=== PATIENT | female | born 1940 | race Caucasian/White ===

== ENCOUNTER 2019-09-18 10:02 | Emergency (ER) | payer MEDICAID, MEDICARE, SELFPAY ==
[2019-09-18] MEDS ORDERED: methylPREDNISolone Sod Succ/PF 125 MG/2 ML VIAL ONE (10:36)
[2019-09-18] MEDS ORDERED: Ketorolac Tromethamine 30 MG/ML VIAL ONE (10:42)
[2019-09-18 10:53] LABS: #Basophils 0.2 thou/uL (0.0-0.2); #Eosinphils 0.3 thou/uL (0.0-0.7); #Lymphocytes 1.9 thou/uL (1.20-3.40); #Neutrophils 9.8 thou/uL (1.40-6.50); %Basophils 1.4 % (0.0-1.0); %Eosinophils 2.2 % (0.0-10.0); %Lymphocytes 14.3 % (21.0-51.0); %Monocytes 7.7 % (0.0-10.0); %Neutrophils 74.3 % (42.0-75.0); Hemoglobin 13.6 g/dL (12.0-16.0); Mean Corpuscular HGB CONC 30.6 g/dL (32.0-36.0); Mean Corpuscular Hemoglobin 29.3 pg (27.0-31.0); Mean Corpuscular Volume 95.8 fL (78.0-98.0); Mean Platelet Volume 9.8 fL (7.4-10.4); Platelet Count 352 thou/uL (130-400); RBC Distribution Width 14.2 % (11.5-14.5); Red Blood Cell (RBC) Count 4.65 mill/uL (4.20-5.40); White Blood Cell (WBC) Count 13.1 thou/uL (4.8-10.8)
[2019-09-18 11:08] LABS: ALT (SGPT) 17 U/L (8-55); AST (SGOT) 13 U/L (5-34); Albumin 4.3 g/dL (3.4-4.8); Alkaline Phosphatase 127 U/L (40-110); Anion Gap 15 mmol/L (10-20); BUN (Urea Nitrogen) 20 mg/dL (9.8-20.1); Bilirubin, Total 0.2 mg/dL (0.2-1.2); CK (CPK) 63 U/L (29-168); Calc. Creatinine Clearance 0 mL/min (70-130); Calcium 9.7 mg/dL (7.8-10.44); Carbon Dioxide 27 mmol/L (23-31); Chloride 101 mmol/L (98-107); Estimated GFR-MDRD 76; Globulin 3.4 g/dL (2.4-3.5); Glucose 132 mg/dL (83-110); Magnesium 2.1 mg/dL (1.6-2.6); Potassium 4.2 mmol/L (3.5-5.1); Protein, Total 7.7 g/dL (6.0-8.3); Sodium 139 mmol/L (136-145)
[2019-09-18] MEDS ORDERED: Lorazepam 2 MG/ML VIAL ONE (12:20)
[2019-09-18] MEDS ORDERED: Magnesium 2 GM/50 ML BAG (IN WATER) ONE (12:22)
--- NOTE | 2019-09-18 17:41 | RAD ---
PORTABLE CHEST: Date: 09-18-2019 An AP portable film at 1118 is compared with a 09-19-17 study. FINDINGS: The heart is borderline in size but changed. There is no vascular congestion, edema, or pleural effus ion. The lungs are hyperexpanded as before. I do not see any signs of pneumonia. There may be a mike h 5 mm nodular density in the right apex, but this area is partially covered by bone, so I cannot be sure. I could not find any evidence of it on the last 2-3 chest films. IMPRESSION: 1. Hyperexpansion of the lungs as usual, but no definite acute findings. 2. Equivocal 5 mm smooth nodule in the right upper lobe. As this is where several bones overlap, this could just as easily be due to overlap. It would probably be best to get a follow up chest radiograp h, preferable a PA in 2-3 months. Code T POS: HOME
== END 2019-09-18 13:52 | disposition short-term general hospital (02) ==
LOC: BURERS 10:02
DX: J44.1 Chronic obstructive pulmonary disease with (acute) exacerbation (principal); E78.5 Hyperlipidemia, unspecified; I10 Essential (primary) hypertension; M06.9 Rheumatoid arthritis, unspecified; Z87.891 Personal history of nicotine dependence; Z79.899 Other long term (current) drug therapy; Z79.51 Long term (current) use of inhaled steroids
CPT/HCPCS: 71045; 80053; 82550; 83735; 84484; 85025; 93005; 94640; 94644; 94660; 94760; 96365; 96375; J1885; J2060; J2930; J3475; J7620

== ENCOUNTER 2019-10-22 13:59 | Emergency (ER) | payer MEDICARE, OTHER ==
[2019-10-22] MEDS ORDERED: Magnesium 2 GM/50 ML BAG (IN WATER) ONE (14:13)
[2019-10-22] MEDS ORDERED: methylPREDNISolone Sod Succ/PF 125 MG/2 ML VIAL ONE (14:13)
[2019-10-22] MEDS ORDERED: Albuterol Sulfate 2.5 mg/0.5 ml Neb ONE ×2 (14:21→14:23)
[2019-10-22 14:34] LABS: ALT (SGPT) 14 U/L (8-55); AST (SGOT) 18 U/L (5-34); Albumin 4.4 g/dL (3.4-4.8); Alkaline Phosphatase 109 U/L (40-110); Anion Gap 15 mmol/L (10-20); BUN (Urea Nitrogen) 20 mg/dL (9.8-20.1); Bilirubin, Total 0.4 mg/dL (0.2-1.2); CK (CPK) 94 U/L (29-168); Calc. Creatinine Clearance 0 mL/min (70-130); Carbon Dioxide 24 mmol/L (23-31); Chloride 103 mmol/L (98-107); Estimated GFR-MDRD 71; Glucose 104 mg/dL (83-110); Potassium 4.3 mmol/L (3.5-5.1); Protein, Total 7.4 g/dL (6.0-8.3); Sodium 138 mmol/L (136-145)
--- NOTE | 2019-10-22 14:36 | RAD ---
RADIOGRAPH CHEST 1 VIEW: DATE: 10/22/2019 HISTORY: 79-year-old female with dyspnea FINDINGS: There is hyperinflation of the lungs, consistent with COPD. There is no evidence of airspace density, pulmonary edema, or pneumothorax. The lateral costophrenic angles are not effaced. IMPRESSION: 1) No acute pulmonary findings. 2) emphysema.
[2019-10-22 14:39] LABS: Eosinophils 1 % (0-10); Hemoglobin 13.3 g/dL (12.0-16.0); Lymphocytes 10 % (21-51); MDiff Complete? YES; Mean Corpuscular HGB CONC 31.3 g/dL (32.0-36.0); Mean Corpuscular Hemoglobin 30.1 pg (27.0-31.0); Mean Corpuscular Volume 96.1 fL (78.0-98.0); Mean Platelet Volume 8.6 fL (7.4-10.4); Monocytes 12 % (0-10); Neutrophil 77 % (42-75); Platelet Count 350 thou/uL (130-400); RBC Distribution Width 14.6 % (11.5-14.5); Red Blood Cell (RBC) Count 4.41 mill/uL (4.20-5.40); White Blood Cell (WBC) Count 14.1 thou/uL (4.8-10.8)
== END 2019-10-22 16:10 | disposition short-term general hospital (02) ==
LOC: BURERS 13:59
DX: J44.1 Chronic obstructive pulmonary disease with (acute) exacerbation (principal); E78.5 Hyperlipidemia, unspecified; I10 Essential (primary) hypertension; M06.9 Rheumatoid arthritis, unspecified; Z87.891 Personal history of nicotine dependence
CPT/HCPCS: 71045; 80053; 82550; 84484; 85025; 93005; 94640; 96365; 96375; J2930; J3475; J7611; J7620

== ENCOUNTER 2020-04-07 12:25 | Emergency (ER) | payer MEDICARE, MEDICAID, OTHER ==
[~2020-04-07 12:25] MED LIST: Iopamidol 370 76% 100 ML VIAL ONE
[2020-04-07] MEDS ORDERED: methylPREDNISolone Sod Succ/PF 125 MG/2 ML VIAL ONE (12:50)
[2020-04-07] MEDS ORDERED: Magnesium 2 GM/50 ML BAG (IN WATER) ONE (12:50)
[2020-04-07] MEDS ORDERED: Ketorolac Tromethamine 30 MG/ML VIAL ONE (12:50)
[2020-04-07 13:24] LABS: ALT (SGPT) 12 U/L (8-55); AST (SGOT) 11 U/L (5-34); Alkaline Phosphatase 77 U/L (40-110); Anion Gap 16 mmol/L (10-20); BUN (Urea Nitrogen) 20 mg/dL (9.8-20.1); Bilirubin, Total 0.8 mg/dL (0.2-1.2); Calc. Creatinine Clearance 0 mL/min (70-130); Calcium 9.4 mg/dL (7.8-10.44); Carbon Dioxide 26 mmol/L (23-31); Chloride 98 mmol/L (98-107); Estimated GFR-MDRD 52; Globulin 2.9 g/dL (2.4-3.5); Glucose 146 mg/dL (83-110); Potassium 3.6 mmol/L (3.5-5.1); Protein, Total 6.9 g/dL (6.0-8.3); Sodium 136 mmol/L (136-145)
[2020-04-07 13:29] LABS: Band 5 % (5-11); Base Excess-Venous 3.5 mmol/L (-2.0 to 3.0); Bicarbonate (HCO3v) 27.6 mmol/L (22.0-28.0); CO2 Tension (PvCO2) 39.4 mmHg (40.0-50.0); Calcium, Ionized 1.14 mmol/L (See Comments:); Chloride 99 mmol/L (98-107); Hemoglobin - Calc 13.5 g/dL (12.0-16.0); Lymphocytes 5 % (21-51); MDiff Complete? YES; Mean Corpuscular Hemoglobin 30.8 pg (27.0-31.0); Mean Corpuscular Volume 99.4 fL (78.0-98.0); Mean Platelet Volume 10.3 fL (7.4-10.4); Monocytes 5 % (0-10); Neutrophil 85 % (42-75); Platelet Count 271 thou/uL (130-400); Potassium 3.6 mmol/L (3.5-5.1); RBC Distribution Width 12.8 % (11.5-14.5); Red Blood Cell (RBC) Count 3.89 mill/uL (4.20-5.40); Sodium 137 mmol/L (138-145); T. Carbon Dioxide 28.8 mmol/L (22.0-28.0); White Blood Cell (WBC) Count 27.3 thou/uL (4.8-10.8); vO2 Saturation-calc 99.7 % (60.0-85.0)
[2020-04-07] MEDS ORDERED: Azithromycin 500 MG VIAL ONE (14:22)
[2020-04-07] MEDS ORDERED: cefTRIAXone\\ROCEPHIN 1 GM VIAL ONE (14:22)
--- NOTE | 2020-04-07 14:32 | CT ---
CT ANGIO OF THE CHEST: Date: 04-07-[address] of the chest was done after a bolus of IV contrast and multiplanar reconstructions were don e. Comparison: 10-26-2019 FINDINGS: There is a new consolidation in the base of the right upper lobe medially that was not present previo usly. Pneumonia is presumed. There is good opacification of the pulmonary arteries with no defects to suggest emboli. There is no evidence of an aortic aneurysm or dissection. The main pulmonary artery is rather large (3.5 cm) suggesting there may be an element of pulmonary arterial hypertension. The p atient does appear to have emphysematous changes. No mediastinal adenopathy of concern was found. Cor onary artery calcifications were present. There are no large effusions. Some minor scarring is sugges vivek in lower lobes. Incidentally noted was a moderate sized hiatal hernia, present on the previous scan as well. IMPRESSION: 1. New infiltrate in the base of the right upper lobe medially. Pneumonia is presumed. Follow up to complete resolution advised, though there were no findings here in October. 2. No evidence of pulmonary embolism. 3. Other findings as mentioned above. Preliminary report called to Dr. Washington at 1416 on 04-07-2020. POS: HOME
--- NOTE | 2020-04-07 14:34 | RAD ---
PORTABLE CHEST: Date: 04-07-2020 Comparison: 10-22-2019 FINDINGS: There is a patchy area to the right of the lower trachea that is not seen on the prior study. An infi ltrate here is possible. See CT report to follow. Lungs are hyperexpanded as usual, presumably due to an element of emphysema. Some scarring is suggested in the left base. The heart size is normal and t here are no effusions or congestive changes. IMPRESSION: Possible early infiltrate right upper lobe. See CT report to follow. POS: HOME
== END 2020-04-07 15:30 | disposition short-term general hospital (02) ==
LOC: BURERS 12:25
DX: J18.9 Pneumonia, unspecified organism (principal); E78.5 Hyperlipidemia, unspecified; J44.9 Chronic obstructive pulmonary disease, unspecified; I10 Essential (primary) hypertension; Z87.891 Personal history of nicotine dependence; Z79.899 Other long term (current) drug therapy
CPT/HCPCS: 36415; 71045; 71275; 80053; 82330; 82803; 83605; 83880; 84484; 85025; 85379; 87040; 87804; 93005; 96365; 96367; 96368; 96375; J0456; J0696; J1885; J2930; J3370; J3475; J7620; Q9967

== ENCOUNTER 2020-09-24 06:46 | Emergency (ER) | payer MEDICARE, MEDICAID, OTHER ==
[2020-09-24] MEDS ORDERED: Ipratropium Bromide 2.5 ml Neb ONE (07:11)
[2020-09-24] MEDS ORDERED: Albuterol Sulfate 1.25 MG/3 ML NEB ONE (07:11)
[2020-09-24] MEDS ORDERED: Magnesium 2 GM/50 ML BAG (IN WATER) ONE (07:13)
[2020-09-24] MEDS ORDERED: methylPREDNISolone Sod Succ/PF 125 MG/2 ML VIAL ONE (07:47)
[2020-09-24 07:49] LABS: Bilirubin Negative (Negative); Blood, Urine Negative (Negative); Clarity Clear (Clear); Glucose, Urine (Dipstick) Negative (Negative); Ketone, Urine Negative (Negative); Leukocyte Negative (Negative); Nitrite Negative (Negative); Protein, Urine (Dipstick) Negative (Neg-Trace); Urobilinogen 0.2 mg/dL (Less than 2)
[2020-09-24 07:53] LABS: Band 3 % (5-11); Eosinophils 10 % (0-10); Hemoglobin 13.5 g/dL (12.0-16.0); Lymphocytes 14 % (21-51); MDiff Complete? YES; Mean Corpuscular HGB CONC 30.6 g/dL (32.0-36.0); Mean Platelet Volume 8.9 fL (7.4-10.4); Monocytes 6 % (0-10); Neutrophil 66 % (42-75); Platelet Count 312 thou/uL (130-400); RBC Distribution Width 13.8 % (11.5-14.5); Red Blood Cell (RBC) Count 4.66 mill/uL (4.20-5.40); White Blood Cell (WBC) Count 13.4 thou/uL (4.8-10.8)
[2020-09-24 07:59] LABS: ALT (SGPT) 17 U/L (8-55); AST (SGOT) 15 U/L (5-34); Alkaline Phosphatase 85 U/L (40-110); Anion Gap 15 mmol/L (10-20); BUN (Urea Nitrogen) 19 mg/dL (9.8-20.1); Bilirubin, Total 0.5 mg/dL (0.2-1.2); Calc. Creatinine Clearance 0 mL/min (70-130); Calcium 9.3 mg/dL (7.8-10.44); Carbon Dioxide 24 mmol/L (23-31); Chloride 103 mmol/L (98-107); Globulin 2.9 g/dL (2.4-3.5); Glucose 113 mg/dL (83-110); Potassium 3.7 mmol/L (3.5-5.1); Protein, Total 6.9 g/dL (5.8-8.1); Sodium 138 mmol/L (136-145)
[2020-09-24] MEDS ORDERED: Sodium Chloride 0.9% 100 ML ONE (08:04)
[2020-09-24] MEDS ORDERED: cefTRIAXone\\ROCEPHIN 1 GM VIAL ONE (08:04)
[2020-09-24] MEDS ORDERED: Azithromycin 500 MG VIAL ONE (08:22)
[2020-09-24 10:12] LABS: SARS-CoV-2 NAA Rapid Test Not Detected (NotDetected)
[2020-09-24] MEDS ORDERED: Iopamidol 370 76% 100 ML VIAL ONE (10:35)
[2020-09-24] MEDS ORDERED: Morphine 2 MG/ML VIAL ONE (14:38)
--- NOTE | 2020-09-24 20:06 | RAD ---
PORTABLE CHEST: 09/24/20 An AP portable film at 1921 is compared with an 03/18/20 study. The heat remains normal in size. The lungs are hyperexpanded but no lobar infiltrate or effusion was seen. There may be a little streaking in the right medially. See CT report to follow. IMPRESSION: Emphysematous change. Minimal right basilar streaking medially. POS: HOME
--- NOTE | 2020-09-24 20:12 | CT ---
CT ANGIO OF THE CHEST 09/24/20 Comparison is made with the prior study of 04/07/20. The patient did have difficulty following breathing instructions, therefore, there is some motion art ifact which degrades the sensitivity slightly. There was no evidence of pulmonary embolism in the lar ami to medium sized branches. Small peripheral emboli could be missed on this study due to the factor s listed above. There is no sign of aortic aneurysm or dissection. Emphysematous changes are seen thr oughout the lungs. There are no effusions. There is a small 8 mm nodule seen in the base of the right upper lobe or top of the right middle lobe . I do not see this on the March study. It is a new finding. Regarding the mediastinum, no pericardi al effusion, mass, or significant adenopathy was detected. Some coronary artery calcifications are hernandez ggested. A moderate sized hiatal hernia is present. The visible upper abdominal structures were unrem arkable. IMPRESSION: 1. No evidence of pulmonary embolism in the large to medium sized branches. The study is not rel iable for more distal emboli due to motion and other technical factors. 2. COPD. 3. New 8 mm nodule in the base of the right upper lobe or top of the right middle lobe, not pres ent on the March 2020 scan. This deserves to be followed up and watched. 4. Hiatal hernia. Findings called to Dr. Holley at 0928 on 09/24/20. POS: HOME
== END 2020-09-24 16:35 | disposition short-term general hospital (02) ==
LOC: BURERS 06:46
DX: J44.1 Chronic obstructive pulmonary disease with (acute) exacerbation (principal); E78.5 Hyperlipidemia, unspecified; I10 Essential (primary) hypertension; M06.9 Rheumatoid arthritis, unspecified; Z87.891 Personal history of nicotine dependence; Z79.51 Long term (current) use of inhaled steroids; Z79.899 Other long term (current) drug therapy
CPT/HCPCS: 0240U; 36415; 71045; 71275; 80053; 81003; 83605; 83880; 84484; 85025; 85379; 87040; 93005; 94760; 96365; 96367; 96375; J0456; J0696; J2270; J2930; J3475; J3490; Q9967

== ENCOUNTER 2021-06-09 05:58 | Inpatient (IN) | payer MEDICARE, MEDICAID ==
[2021-06-09] MEDS ORDERED: methylPREDNISolone Sod Succ/PF 125 MG/2 ML VIAL ONE (06:34)
[2021-06-09 06:55] LABS: #Basophils 0.2 thou/uL (0.0-0.2); #Eosinphils 0.5 thou/uL (0.0-0.7); #Monocytes 1.3 thou/uL (0.11-0.59); #Neutrophils 6.7 thou/uL (1.40-6.50); %Basophils 1.8 % (0.0-1.0); %Eosinophils 5.4 % (0.0-10.0); %Lymphocytes 10.1 % (21.0-51.0); %Monocytes 13.6 % (0.0-10.0); Hemoglobin 13.7 g/dL (12.0-16.0); Mean Corpuscular HGB CONC 32.2 g/dL (32.0-36.0); Mean Corpuscular Hemoglobin 30.4 pg (27.0-31.0); Mean Corpuscular Volume 94.3 fL (78.0-98.0); Mean Platelet Volume 9.3 fL (7.4-10.4); Platelet Count 258 thou/uL (130-400); RBC Distribution Width 14.5 % (11.5-14.5); Red Blood Cell (RBC) Count 4.51 mill/uL (4.20-5.40); White Blood Cell (WBC) Count 9.7 thou/uL (4.8-10.8)
[2021-06-09 07:09] LABS: ALT (SGPT) 12 U/L (8-55); AST (SGOT) 17 U/L (5-34); Albumin 4.2 g/dL (3.4-4.8); Alkaline Phosphatase 102 U/L (40-110); Anion Gap 13 mmol/L (10-20); BUN (Urea Nitrogen) 17 mg/dL (9.8-20.1); Bilirubin, Total 0.3 mg/dL (0.2-1.2); Calc. Creatinine Clearance 0 mL/min (70-130); Calcium 9.7 mg/dL (7.8-10.44); Carbon Dioxide 29 mmol/L (23-31); Chloride 103 mmol/L (98-107); Globulin 2.3 g/dL (2.4-3.5); Glucose 133 mg/dL (83-110); Potassium 4.1 mmol/L (3.5-5.1); Protein, Total 6.5 g/dL (5.8-8.1); Sodium 141 mmol/L (136-145)
[2021-06-09] MEDS ORDERED: Sodium Chloride 0.9% 100 ML ONE (07:09)
[2021-06-09] MEDS ORDERED: cefTRIAXone\\ROCEPHIN 2 GM VIAL ONE (07:09)
[2021-06-09 07:12] LABS: Base Excess-Venous 2.8 mmol/L (-2.0 to 3.0); Bicarbonate (HCO3v) 28.9 mmol/L (22.0-28.0); CO2 Tension (PvCO2) 49.3 mmHg (42.0-51.0); Chloride 103 mmol/L (98-107); Hemoglobin - Calc 14.8 g/dL (12.0-16.0); Sodium 141 mmol/L (138-145); T. Carbon Dioxide 30.4 mmol/L (22.0-28.0); vO2 Saturation-calc 89.2 % (60.0-85.0)
[2021-06-09] MEDS ORDERED: Albuterol Sulfate 1.25 MG/3 ML NEB ONE (07:43)
[2021-06-09 08:12] LABS: SARS-CoV-2 NAA Rapid Test Not Detected (NotDetected)
[2021-06-09 10:06] VITALS: BMI 24.2
[2021-06-09] MEDS ORDERED: HYDROcodone/Acetaminophen 5/325 mg Tablet PO PRN ×2 (11:34)
[2021-06-09] MEDS ORDERED: Albuterol Sulfate 2.5 mg/3 ml Neb NEB PRN (11:35)
[2021-06-09] MEDS ORDERED: Ondansetron ODT 4 MG TAB SL PRN (11:45)
[2021-06-09] MEDS ORDERED: Ondansetron PF 4 MG/2 ML Vial IVP PRN (11:45)
[2021-06-09] MEDS ORDERED: Acetaminophen 325 MG TAB PO PRN (11:45)
[2021-06-09] MEDS: Dextrose 5 %-0.45 % NaCl 1,000 ML IV SCH ×2 (13:04→23:03)
[2021-06-09] MEDS ORDERED: methylPREDNISolone Sod Succ 40 MG VIAL IVP SCH (14:00)
[2021-06-09] MEDS ORDERED: FLU VACC QS2021-22(65YR UP)/PF 240 MCG/0.7 ML SYRINGE IM ONE (14:00)
[2021-06-09] MEDS: methylPREDNISolone Sod Succ 40 MG VIAL IVP SCH ×2 (17:16→23:03)
[2021-06-09] MEDS: Mometasone/Formoterol 200/5 60 PUFF INH SCH (19:09)
[2021-06-09] MEDS: Atorvastatin Calcium 10 MG TAB PO SCH (20:24)
[2021-06-09] MEDS: Zolpidem Tartrate 5 MG TAB PO SCH (20:24)
[2021-06-10] MEDS: methylPREDNISolone Sod Succ 40 MG VIAL IVP SCH ×2 (05:52→11:59)
[2021-06-10] MEDS: Mometasone/Formoterol 200/5 60 PUFF INH SCH (06:06)
[2021-06-10] MEDS ORDERED: Non-Formulary Item 1 EACH (Lisinopril/Hydrochlorothiazide [Lisinopril-Hctz 20-12.5 Mg Tab PO SCH (09:00)
[2021-06-10] MEDS ORDERED: Amlodipine 10 MG TAB PO SCH (09:00)
[2021-06-10] MEDS: Dextrose 5 %-0.45 % NaCl 1,000 ML IV SCH ×2 (09:14→20:33)
[2021-06-10] MEDS: Hydrochlorothiazide 25 MG TAB PO SCH (09:18)
[2021-06-10] MEDS: Lisinopril 20 MG TAB PO SCH (09:20)
[2021-06-10] MEDS: Mag-Al Plus 1200 MG/1200 MG/120 MG/30 ML UDCUP PO PRN (11:58)
[2021-06-10] MEDS: methylPREDNISolone Sod Succ/PF 125 MG/2 ML VIAL IVP SCH (18:28)
[2021-06-10] MEDS ORDERED: Budesonide 0.5 MG/2 ML NEB NEB SCH (19:00)
[2021-06-10] MEDS ORDERED: Loperamide HCl 2 MG CAP PO PRN (20:15)
[2021-06-10] MEDS: Atorvastatin Calcium 10 MG TAB PO SCH (20:30)
[2021-06-10] MEDS: Amlodipine 10 MG TAB PO SCH (20:30)
[2021-06-10] MEDS: Budesonide 0.5 MG/2 ML NEB NEB SCH (20:31)
[2021-06-10] MEDS: Zolpidem Tartrate 5 MG TAB PO SCH (20:33)
[2021-06-11] MEDS: methylPREDNISolone Sod Succ/PF 125 MG/2 ML VIAL IVP SCH ×4 (00:27→17:35)
[2021-06-11] MEDS: Dextrose 5 %-0.45 % NaCl 1,000 ML IV SCH (05:32)
[2021-06-11] MEDS: Budesonide 0.5 MG/2 ML NEB NEB SCH ×2 (08:51→20:54)
[2021-06-11] MEDS: Hydrochlorothiazide 25 MG TAB PO SCH (08:52)
[2021-06-11] MEDS: Lisinopril 20 MG TAB PO SCH (08:52)
[2021-06-11] MEDS: Acetaminophen 325 MG TAB PO PRN (08:54)
[2021-06-11] MEDS: Mag-Al Plus 1200 MG/1200 MG/120 MG/30 ML UDCUP PO PRN (11:15)
[2021-06-11 12:46] LABS: Troponin I Less than 0.010 ng/mL (< 0.028)
[2021-06-11] MEDS: Enoxaparin Sodium 30 MG/0.3 ML SYRINGE SC SCH ×2 (20:53→20:59)
[2021-06-11] MEDS: Atorvastatin Calcium 10 MG TAB PO SCH (20:54)
[2021-06-11] MEDS: Amlodipine 10 MG TAB PO SCH (20:54)
[2021-06-11] MEDS: Zolpidem Tartrate 5 MG TAB PO SCH (20:54)
[2021-06-12] MEDS: methylPREDNISolone Sod Succ/PF 125 MG/2 ML VIAL IVP SCH ×5 (06:21→23:57)
[2021-06-12] MEDS: Hydrochlorothiazide 25 MG TAB PO SCH (08:48)
[2021-06-12] MEDS: Lisinopril 20 MG TAB PO SCH (08:49)
[2021-06-12] MEDS: Mag-Al Plus 1200 MG/1200 MG/120 MG/30 ML UDCUP PO PRN (08:50)
[2021-06-12] MEDS: Budesonide 0.5 MG/2 ML NEB NEB SCH ×2 (08:51→20:58)
[2021-06-12] MEDS: Sucralfate 1 GM/10 ML UDCUP PO SCH ×2 (17:07→20:58)
[2021-06-12] MEDS: Enoxaparin Sodium 30 MG/0.3 ML SYRINGE SC SCH ×2 (20:58→21:03)
[2021-06-12] MEDS: Atorvastatin Calcium 10 MG TAB PO SCH (20:58)
[2021-06-12] MEDS: Zolpidem Tartrate 5 MG TAB PO SCH (20:59)
[2021-06-12] MEDS: Amlodipine 10 MG TAB PO SCH (20:59)
[2021-06-13] MEDS: methylPREDNISolone Sod Succ/PF 125 MG/2 ML VIAL IVP SCH (05:38)
[2021-06-13] MEDS: Acetaminophen 325 MG TAB PO PRN (09:40)
[2021-06-13] MEDS: Lisinopril 20 MG TAB PO SCH (09:41)
[2021-06-13] MEDS: Hydrochlorothiazide 25 MG TAB PO SCH (09:43)
[2021-06-13] MEDS: Sucralfate 1 GM/10 ML UDCUP PO SCH ×4 (09:43→20:11)
[2021-06-13] MEDS: Budesonide 0.5 MG/2 ML NEB NEB SCH ×2 (09:45→20:11)
[2021-06-13] MEDS: Atorvastatin Calcium 10 MG TAB PO SCH (20:11)
[2021-06-13] MEDS: Amlodipine 10 MG TAB PO SCH (20:11)
[2021-06-13] MEDS: Zolpidem Tartrate 5 MG TAB PO SCH (20:11)
[2021-06-13] MEDS: Enoxaparin Sodium 30 MG/0.3 ML SYRINGE SC SCH (20:12)
[2021-06-14 04:47] VITALS: TEMP 98.3
[2021-06-14] MEDS: Acetaminophen 325 MG TAB PO PRN (06:17)
[2021-06-14] MEDS ORDERED: predniSONE 20 MG TAB PO SCH (08:00)
[2021-06-14] MEDS: Lisinopril 20 MG TAB PO SCH (10:13)
[2021-06-14] MEDS: Hydrochlorothiazide 25 MG TAB PO SCH (10:13)
[2021-06-14] MEDS: Sucralfate 1 GM/10 ML UDCUP PO SCH ×2 (10:14→13:20)
[2021-06-14] MEDS: Budesonide 0.5 MG/2 ML NEB NEB SCH (10:14)
[2021-06-14 10:15] VITALS: BP 130/64
== END 2021-06-14 14:07 | disposition swing bed (61) | DRG 190 ==
LOC: BURERS 05:58 → BURMED 08:55
PROVIDERS: ADMIT Family Medicine; ATTEND Family Medicine
DX: J44.1 Chronic obstructive pulmonary disease with (acute) exacerbation (principal); J12.1 Respiratory syncytial virus pneumonia; J44.0 Chronic obstructive pulmonary disease with (acute) lower respiratory infection; E78.5 Hyperlipidemia, unspecified; I10 Essential (primary) hypertension; F41.9 Anxiety disorder, unspecified; Z20.822 Contact with and (suspected) exposure to COVID-19; M06.9 Rheumatoid arthritis, unspecified; Z90.710 Acquired absence of both cervix and uterus; Z87.891 Personal history of nicotine dependence; Z88.2 Allergy status to sulfonamides
CPT/HCPCS: 36415; 36416; 71045; 80053; 82330; 82803; 83605; 83880; 84484; 85025; 87040; 87807; 94640; 94760; 96365; 96375; J0696; J1650; J2405; J2920; J2930; J3490; J7042; J7512; J7620; J7626; Q0162; U0002

== ENCOUNTER 2021-06-14 14:05 | Inpatient (IN) | payer MEDICARE, MEDICAID ==
[2021-06-14 15:20] VITALS: BMI 24.2
[2021-06-14] MEDS ORDERED: Mag-Al Plus 1200 MG/1200 MG/120 MG/30 ML UDCUP PO PRN (15:20)
[2021-06-14] MEDS ORDERED: Ondansetron ODT 4 MG TAB PO PRN (15:20)
[2021-06-14] MEDS: Sucralfate 1 GM/10 ML UDCUP PO SCH ×2 (18:11→20:30)
[2021-06-14] MEDS: Budesonide 0.5 MG/2 ML NEB NEB SCH (18:12)
[2021-06-14] MEDS: Atorvastatin Calcium 10 MG TAB PO SCH (20:30)
[2021-06-14] MEDS: Zolpidem Tartrate 5 MG TAB PO SCH (20:30)
[2021-06-14] MEDS: Amlodipine 10 MG TAB PO SCH (20:31)
[2021-06-14] MEDS ORDERED: SIMVASTATIN 20 MG PO SCH (21:00)
[2021-06-14] MEDS: Enoxaparin Sodium 30 MG/0.3 ML SYRINGE SC SCH (23:00)
[2021-06-15] MEDS: Acetaminophen 325 MG TAB PO PRN (04:43)
[2021-06-15] MEDS: Budesonide 0.5 MG/2 ML NEB NEB SCH ×2 (06:07→19:50)
[2021-06-15] MEDS: Lisinopril 20 MG TAB PO SCH (08:51)
[2021-06-15] MEDS: Sucralfate 1 GM/10 ML UDCUP PO SCH ×4 (08:51→20:47)
[2021-06-15] MEDS: predniSONE 20 MG TAB PO SCH (08:52)
[2021-06-15] MEDS: Hydrochlorothiazide 25 MG TAB PO SCH (08:53)
[2021-06-15] MEDS: Atorvastatin Calcium 10 MG TAB PO SCH (20:17)
[2021-06-15] MEDS: Zolpidem Tartrate 5 MG TAB PO SCH (20:17)
[2021-06-15] MEDS: Amlodipine 10 MG TAB PO SCH (20:17)
[2021-06-15] MEDS: Enoxaparin Sodium 30 MG/0.3 ML SYRINGE SC SCH (20:17)
[2021-06-16 04:57] LABS: Hemoglobin 12.4 g/dL (12.0-16.0); Platelet Count 243 thou/uL (130-400)
[2021-06-16] MEDS: Budesonide 0.5 MG/2 ML NEB NEB SCH ×2 (05:51→19:41)
[2021-06-16] MEDS: Lisinopril 20 MG TAB PO SCH (09:41)
[2021-06-16] MEDS: predniSONE 20 MG TAB PO SCH (09:42)
[2021-06-16] MEDS: Hydrochlorothiazide 25 MG TAB PO SCH (09:42)
[2021-06-16] MEDS: Sucralfate 1 GM/10 ML UDCUP PO SCH ×4 (10:22→20:14)
[2021-06-16] MEDS: Atorvastatin Calcium 10 MG TAB PO SCH (20:13)
[2021-06-16] MEDS: Amlodipine 10 MG TAB PO SCH (20:13)
[2021-06-16] MEDS: Enoxaparin Sodium 30 MG/0.3 ML SYRINGE SC SCH (20:14)
[2021-06-16] MEDS: Zolpidem Tartrate 5 MG TAB PO SCH (20:14)
[2021-06-17] MEDS: Budesonide 0.5 MG/2 ML NEB NEB SCH ×2 (06:28→20:24)
[2021-06-17] MEDS: Lisinopril 20 MG TAB PO SCH (08:26)
[2021-06-17] MEDS: Sucralfate 1 GM/10 ML UDCUP PO SCH ×4 (08:26→20:24)
[2021-06-17] MEDS: Hydrochlorothiazide 25 MG TAB PO SCH (08:26)
[2021-06-17] MEDS: Acetaminophen 325 MG TAB PO PRN (08:35)
[2021-06-17] MEDS: Zolpidem Tartrate 5 MG TAB PO SCH (20:24)
[2021-06-17] MEDS: Amlodipine 10 MG TAB PO SCH (20:24)
[2021-06-17] MEDS: Enoxaparin Sodium 30 MG/0.3 ML SYRINGE SC SCH (20:25)
[2021-06-17] MEDS: Atorvastatin Calcium 10 MG TAB PO SCH (20:30)
[2021-06-17 21:58] LABS: SARS-CoV-2 PCR by NAA Not Detected (NotDetected)
[2021-06-18] MEDS: Acetaminophen 325 MG TAB PO PRN (04:14)
[2021-06-18] MEDS: Sucralfate 1 GM/10 ML UDCUP PO SCH ×4 (07:38→20:33)
[2021-06-18] MEDS: Budesonide 0.5 MG/2 ML NEB NEB SCH ×2 (08:55→20:39)
[2021-06-18] MEDS: Hydrochlorothiazide 25 MG TAB PO SCH (08:55)
[2021-06-18] MEDS: Lisinopril 20 MG TAB PO SCH (08:56)
[2021-06-18] MEDS: Enoxaparin Sodium 30 MG/0.3 ML SYRINGE SC SCH (20:32)
[2021-06-18] MEDS: Atorvastatin Calcium 10 MG TAB PO SCH (20:33)
[2021-06-18] MEDS: Zolpidem Tartrate 5 MG TAB PO SCH (20:33)
[2021-06-18] MEDS: Amlodipine 10 MG TAB PO SCH (20:33)
[2021-06-19] MEDS: Sucralfate 1 GM/10 ML UDCUP PO SCH ×4 (08:49→20:17)
[2021-06-19] MEDS: Hydrochlorothiazide 25 MG TAB PO SCH (08:49)
[2021-06-19] MEDS: Lisinopril 20 MG TAB PO SCH (08:50)
[2021-06-19] MEDS: Budesonide 0.5 MG/2 ML NEB NEB SCH ×2 (08:57→20:17)
[2021-06-19] MEDS: Acetaminophen 325 MG TAB PO PRN (14:35)
[2021-06-19] MEDS: Atorvastatin Calcium 10 MG TAB PO SCH (20:17)
[2021-06-19] MEDS: Zolpidem Tartrate 5 MG TAB PO SCH (20:17)
[2021-06-19] MEDS: Amlodipine 10 MG TAB PO SCH (20:18)
[2021-06-19] MEDS: Enoxaparin Sodium 30 MG/0.3 ML SYRINGE SC SCH (21:00)
[2021-06-20] MEDS: Acetaminophen 325 MG TAB PO PRN (05:15)
[2021-06-20] MEDS: Hydrochlorothiazide 25 MG TAB PO SCH (08:47)
[2021-06-20] MEDS: Lisinopril 20 MG TAB PO SCH (08:47)
[2021-06-20] MEDS: Sucralfate 1 GM/10 ML UDCUP PO SCH ×4 (08:47→20:35)
[2021-06-20] MEDS: Budesonide 0.5 MG/2 ML NEB NEB SCH ×2 (08:50→20:35)
[2021-06-20] MEDS: Amlodipine 10 MG TAB PO SCH (20:35)
[2021-06-20] MEDS: Zolpidem Tartrate 5 MG TAB PO SCH (20:35)
[2021-06-20] MEDS: Enoxaparin Sodium 30 MG/0.3 ML SYRINGE SC SCH (20:37)
[2021-06-20] MEDS: Atorvastatin Calcium 10 MG TAB PO SCH (20:38)
[2021-06-21] MEDS: Hydrochlorothiazide 25 MG TAB PO SCH (09:43)
[2021-06-21] MEDS: Lisinopril 20 MG TAB PO SCH (09:44)
[2021-06-21] MEDS: Sucralfate 1 GM/10 ML UDCUP PO SCH ×4 (09:45→20:59)
[2021-06-21] MEDS: Budesonide 0.5 MG/2 ML NEB NEB SCH ×2 (09:52→20:58)
[2021-06-21] MEDS: Acetaminophen 325 MG TAB PO PRN (13:20)
[2021-06-21] MEDS: Zolpidem Tartrate 5 MG TAB PO SCH (20:59)
[2021-06-21] MEDS: Atorvastatin Calcium 10 MG TAB PO SCH (20:59)
[2021-06-21] MEDS: Amlodipine 10 MG TAB PO SCH (20:59)
[2021-06-21] MEDS: Enoxaparin Sodium 30 MG/0.3 ML SYRINGE SC SCH (21:00)
[2021-06-22] MEDS: Acetaminophen 325 MG TAB PO PRN (04:44)
[2021-06-22] MEDS: Lisinopril 20 MG TAB PO SCH (09:23)
[2021-06-22] MEDS: Sucralfate 1 GM/10 ML UDCUP PO SCH ×4 (09:24→20:11)
[2021-06-22] MEDS: Hydrochlorothiazide 25 MG TAB PO SCH (09:24)
[2021-06-22] MEDS: Budesonide 0.5 MG/2 ML NEB NEB SCH ×2 (09:24→20:13)
[2021-06-22] MEDS: Amlodipine 10 MG TAB PO SCH (20:11)
[2021-06-22] MEDS: Atorvastatin Calcium 10 MG TAB PO SCH (20:12)
[2021-06-22] MEDS: Zolpidem Tartrate 5 MG TAB PO SCH (20:12)
[2021-06-22] MEDS: Enoxaparin Sodium 30 MG/0.3 ML SYRINGE SC SCH (20:17)
[2021-06-23] MEDS: Acetaminophen 325 MG TAB PO PRN ×2 (00:13→11:22)
[2021-06-23 04:45] LABS: Platelet Count 199 thou/uL (130-400)
[2021-06-23 05:32] VITALS: TEMP 98
[2021-06-23] MEDS: Sucralfate 1 GM/10 ML UDCUP PO SCH ×2 (08:31→11:23)
[2021-06-23] MEDS: Budesonide 0.5 MG/2 ML NEB NEB SCH (08:32)
[2021-06-23] MEDS: Hydrochlorothiazide 25 MG TAB PO SCH (08:32)
[2021-06-23] MEDS: Lisinopril 20 MG TAB PO SCH (08:32)
[2021-06-23 08:33] VITALS: BP 114/58
== END 2021-06-23 13:00 | disposition home or self-care (01) | DRG 194 ==
LOC: BURMED 14:05
PROVIDERS: ADMIT Family Medicine; ATTEND Family Medicine
DX: J12.1 Respiratory syncytial virus pneumonia (principal); J44.0 Chronic obstructive pulmonary disease with (acute) lower respiratory infection; J44.1 Chronic obstructive pulmonary disease with (acute) exacerbation; R09.02 Hypoxemia; K21.9 Gastro-esophageal reflux disease without esophagitis; I10 Essential (primary) hypertension; E78.5 Hyperlipidemia, unspecified; M06.9 Rheumatoid arthritis, unspecified; Z20.822 Contact with and (suspected) exposure to COVID-19; F41.9 Anxiety disorder, unspecified; M40.204 Unspecified kyphosis, thoracic region; Z90.710 Acquired absence of both cervix and uterus; Z87.891 Personal history of nicotine dependence
CPT/HCPCS: 36415; 82565; 85014; 85018; 85049; 94640; J7512; J7620; J7626; U0003; U0005

== ENCOUNTER 2021-07-11 09:56 | Emergency (ER) | payer MEDICAID, MEDICARE ==
[2021-07-11] MEDS ORDERED: Albuterol Sulfate 1.25 MG/3 ML NEB ONE (10:21)
[2021-07-11] MEDS ORDERED: Magnesium 2 GM/50 ML BAG (IN WATER) ONE (10:21)
[2021-07-11] MEDS ORDERED: methylPREDNISolone Sod Succ/PF 125 MG/2 ML VIAL ONE (10:21)
[2021-07-11 10:42] LABS: Hemoglobin 12.5 g/dL (12.0-16.0); Mean Corpuscular HGB CONC 32.8 g/dL (32.0-36.0); Mean Corpuscular Hemoglobin 30.8 pg (27.0-31.0); Mean Corpuscular Volume 93.7 fL (78.0-98.0); Mean Platelet Volume 8.1 fL (7.4-10.4); Platelet Count 393 thou/uL (130-400); Red Blood Cell (RBC) Count 4.06 mill/uL (4.20-5.40); White Blood Cell (WBC) Count 50.1 thou/uL (4.8-10.8)
[2021-07-11] MEDS ORDERED: Sodium Chloride 0.9% 100 ML ONE (10:44)
[2021-07-11] MEDS ORDERED: cefTRIAXone\\ROCEPHIN 2 GM VIAL ONE (10:44)
[2021-07-11 10:47] LABS: ALT (SGPT) 16 U/L (8-55); AST (SGOT) 19 U/L (5-34); Albumin 3.9 g/dL (3.4-4.8); Alkaline Phosphatase 80 U/L (40-110); Anion Gap 17 mmol/L (10-20); BUN (Urea Nitrogen) 22 mg/dL (9.8-20.1); Bilirubin, Total 0.7 mg/dL (0.2-1.2); Calc. Creatinine Clearance 0 mL/min (70-130); Calcium 10.4 mg/dL (7.8-10.44); Carbon Dioxide 23 mmol/L (23-31); Chloride 103 mmol/L (98-107); Globulin 3.5 g/dL (2.4-3.5); Glucose 113 mg/dL (83-110); Protein, Total 7.4 g/dL (5.8-8.1); Sodium 139 mmol/L (136-145)
[2021-07-11 11:34] LABS: Band 19 % (5-11); Lymphocytes 6 % (21-51); MDiff Complete? YES; Monocytes 8 % (0-10); Neutrophil 66 % (42-75); Reactive Lymphocytes 1 % (0-10)
[2021-07-11 11:57] LABS: SARS-CoV-2 NAA Rapid Test Not Detected (NotDetected)
== END 2021-07-11 13:25 | disposition short-term general hospital (02) ==
LOC: BURERS 09:56
DX: J44.1 Chronic obstructive pulmonary disease with (acute) exacerbation (principal); J18.9 Pneumonia, unspecified organism; D72.829 Elevated white blood cell count, unspecified; Z20.822 Contact with and (suspected) exposure to COVID-19; E78.5 Hyperlipidemia, unspecified; I10 Essential (primary) hypertension; Z87.891 Personal history of nicotine dependence
CPT/HCPCS: 0241U; 36415; 71045; 80053; 83605; 84484; 85025; 87040; 93005; 94640; 94760; 96365; 96367; 96375; J0696; J1956; J2930; J3475; J3490; J7620